=== PATIENT | female | born 1980 | race Caucasian/White ===

== ENCOUNTER 2018-09-22 17:34 | Emergency (ER) | payer SELFPAY ==
[2018-09-22 17:44] VITALS: BP 130/71; PULSE 67; RESP 16; TEMP 36; O2SAT 100
--- NOTE | 2018-09-22 17:48 | W.ED.GENAD ---
Discharge Plan Disposition Patient Disposition: HOME Condition: Good Discharge Details Chief Complaint: Sorethroat Clinical Impression: Acute sore throat, URI (upper respiratory infection) Primary Care Provider: Duran Mistry ED Provider: Clay Selby Home Meds and New Rx's Prescriptions: No Action sertraline 50 MG tablet 1.5 tab PO DAILY Qty: 135 RF: 1 norgestimate-ethinyl estradiol [Ortho Tri-Cyclen (28)] 1 EACH tablet 1 tab PO DAILY RF: 0 ibuprofen 800 MG tablet 800 mg PO QID PRN PRN (Reason: Pain) Qty: 30 RF: 0 clindamycin HCl 300 MG capsule 300 mg PO QID Qty: 28 RF: 0 Discharge Instructions Instructions: Upper Respiratory Infection (ED) Additional Instructions: Please take 800 mg of ibuprofen every 6 hours and 1000 mg of Tylenol every 6 hours for improvement of your pain. If you notice any worsening of your symptoms, or any new symptoms such as vomiting, diarrhea, fever, chills, shortness of breath, chest pain, numbness, weakness, or fainting , please return immediately to the emergency department for reevaluation. Please follow up with your primary care provider as soon as possible for reassessment and reevaluation. As always, it was a pleasure participating in your medical care today. Referrals: Duran Mistry [Primary Care Provider] - Medical Decision Making This is a very pleasant 38-year-old female who presents for evaluation of mild sore throat for the last week. No associated fevers, difficulty swallowing, or difficulty drinking. Symptoms are improved with hot tea. Physical exam demonstrates minimal cobblestoning the posterior oropharynx. No other significant abnormalities. No symptoms of severe fatigue, no abdominal tenderness suggestive of mono. No evidence of paratracheal abscess on exam, no evidence of retropharyngeal/peritonsillar abscess. Uvula is midline. No clinical evidence of meningitis. The patient clinically looks very well. I feel her signs and symptoms are consistent with a mild viral upper respiratory infection causing postnasal drip and subsequent sore throat. Recommend Anthony pot, Tylenol, Motrin, and continued fluids. She is out of the time index for Tamiflu, as her symptoms been present for a week. Her strep is negative for any evidence of strep throat. I have extensively reviewed the treatment plan and discharge instructions with the patient. I have addressed all patient concerns at this time. The patient was made aware of what symptoms to monitor for that would warrant a return to the emergency department. Discussed the plan with the patient, they demonstrate verbal understanding and agreement with our assessment and plan at this time. HPI General Date/Time Provider Initiated Documentation: 09/22/18 17:36. HPI Narrative: This is a 38-year-old female with no significant past medical history who presents today for evaluation of sore throat for the last week. Patient states that for the last week she has had mild sore throat, it is improved with hot tea. She has not been taking Tylenol or Motrin. She denies any difficulty swallowing, neck pain, neck stiffness, fever, chills, chest pain, shortness of breath, numbness, tingling or weakness. She denies any headache. She denies any complaint of vomiting, or diarrhea. She has no other complaints at this time. Past surgical history is positive for tonsillectomy and adenoidectomy. No other complaints modifying factors at this time. Related Data Home Medications Medication Instructions Recorded Confirmed sertraline 1.5 tab PO DAILY #135 tab-cap 04/17/14 ibuprofen 800 mg PO QID PRN PRN #30 tablet 09/09/15 07/23/17 norgestimate-ethinyl estradiol 1 tab PO DAILY 09/09/15 07/23/17 [Ortho Tri-Cyclen (28)] clindamycin HCl 300 mg PO QID #28 cap 07/23/17 Previous Rx's Medication Instructions Recorded ibuprofen 800 mg PO QID PRN PRN #30 tablet 09/09/15 clindamycin HCl 300 mg PO QID #28 cap 07/23/17 Allergies Allergy/AdvReac Type Severity Reaction Status Date / Time Penicillins AdvReac Mild increases Unverified 09/22/18 17:50 anxiety Review of Systems Review of Systems All systems reviewed & are unremarkable except as noted in HPI and below [facility] Surgical History section (05/07/11) Tonsillectomy and adenoidectomy Social History Smoking and Tabacco status: Never Exam Narrative Exam Narrative: 1.Const: Well-nourished, Well-developed, appearing stated age 2.Eyes: PERRL, no conjunctival injection, and symmetrical lids. 3.ENT: Atraumatic external nose and ears. Moist MM. Neck: Symmetric, trachea midline, No thyromegaly. No significant erythema in the posterior oropharynx. Minimal cobblestoning in the posterior oropharynx. Mild sinus congestion is noted with palpation and percussion of the frontal maxillary sinuses. No evidence of otitis media or externa. Patient demonstrates good movement of cervical neck. There is no nuchal rigidity, no nuchal tenderness. Patient is able to flex the neck without any difficulty or significant pain. Negative Kernig's and Brudzinski sign. 4.CVS: +S1/S2, No murmurs or gallops. Peripheral pulses 2+ and equal in all extremities. Brisk capillary refill in all extremities. 5.RESP: Unlabored respiratory effort. Clear to auscultation bilaterally. No wheezes rales or rhonchi 6.GI: Soft, Nontender/Nondistended, No hepatosplenomegaly. No guarding or rebound. 7.MSK: Normocephalic/Atraumatic, Extremities w/o deformity or ttp No cyanosis or clubbing, Normal movement of all extremities 8.Skin: Warm, Dry. No rashes or lesions. 9.Neuro: door opener II-XII grossly intact. Sensation grossly intact, no focal neurologic deficits. 10.Psych: (AAO) x3. Appropriate mood and affect
== END 2018-09-22 18:05 | disposition home or self-care (01) ==
LOC: ER 18:14
PROVIDERS: Emergency Provider Student in an Organized Health Care Education/Training Program; PCP Specialist/Technologist Athletic Trainer
DX: J06.9 Acute upper respiratory infection, unspecified (principal)
CPT/HCPCS: 87880; 99282; 87081

== ENCOUNTER 2020-11-10 14:46 | Emergency (ER) | payer MEDICAID, SELFPAY ==
--- NOTE | 2020-11-10 14:47 | ED.GENADUL_ITS ---
Discharge Plan Disposition Patient Disposition: HOME Condition: Good Discharge Details Clinical Impression: Abscess Primary Care Provider: Duran Mistry ED Provider: Eleonora Black Home Meds and New Rx's Prescriptions: New sulfamethoxazole-trimethoprim [Bactrim DS] 800-160 mg tablet 1 tab PO BID Qty: 10 RF: 0 Continued sertraline 50 MG tablet 1.5 tab PO DAILY Qty: 135 RF: 1 norgestimate-ethinyl estradiol [Ortho Tri-Cyclen (28)] 1 EACH tablet 1 tab PO DAILY RF: 0 ibuprofen 800 MG tablet 800 mg PO QID PRN PRN (Reason: Pain) Qty: 30 RF: 0 Discharge Instructions Instructions: Abscess (ED) Additional Instructions: Your red area is most consistent with abscess that has drained spontaneously. At this time, continue with the treatment you have been doing at home- keeping area clean, warm compresses. If the redness spreads, has increased pain, please and the antibiotic begin the antibiotics. If you start the antibiotic, please take the entire course. If you begin to developing fever/chills, the redness has significant change or you develop other new/worsening symptoms please seek care urgently once again. Otherwise, please follow-up with primary care in 1 week for reevaluation Referrals: Duran Mistry [Primary Care Provider] - Discharge Data Discharge Date/Time-TO BE ENTERED AT DEPARTURE: 11/10/20 15:31 Medical Decision Making Patient is a pleasant 40-year-old female presenting today with chief complaint of abdominal lesion. She reports that she first noticed this a few days ago. States that she has had boils in the past. Has not had lesion in this area previously. She reports that last night the lesion spontaneously opened and drained purulent discharge. Denies any fevers or chills. No other lesions at this time. On exam, patient appears nontoxic. She does have a small focal area on her abdomen as described. She has a small open area consistent with where this has been draining from previously. I not see any evidence to suggest residual retained contents. There is no area of fluctuance, swelling or induration. I did explore the area with an ultrasound and no fluid collections are noted. Sma ll area of erythema surrounding this. However, it is not hot. I do not see any evidence of significant cellulitis. Patient I discussed treatment options. Pelvic patient had an abscess which spontaneously drained. I do not see any further need for intervention at this time. We did discuss plus/minus of antibiotics. Will perform watch and wait approach. Will prescribe antibiotics in the event that symptoms worsen. However, at this time I did advise that she hold off. She will follow-up with primary care for reevaluation. Return precautions were discussed. All her questions and concerns were addressed and she is in agreement this plan. HPI General Mode of arrival: ambulatory . Date/Time Provider Initiated Documentation: 11/10/20 14:47 . Limitations to Documentation: no limitations . Information obtained by: patient and RN notes reviewed . History of Present Illness 40 year old F presents to the emergency department with the chief complaint of abdominal lesion, described as moderate, Quality is described as burning, and is localized to the abdomen. Patient reports no radiation. Patient started experiencing this day(s) and it has been constant (improving). other things that improve symptom(s), (opened and drained spontaneously) No exacerbating factors reported . Patient notes no other symptoms.; denies fever/chills. Patient did receive the following treatments prior to arrival, none Related Data Home Medications Medication Instructions Recorded Confirmed sertraline 1.5 tab PO DAILY #135 tab-cap 04/17/14 11/10/20 ibuprofen 800 mg PO QID PRN PRN #30 tablet 09/09/15 11/10/20 norgestimate-ethinyl estradiol 1 tab PO DAILY 09/09/15 11/10/20 [Ortho Tri-Cyclen (28)] sulfamethoxazole-trimethoprim 1 tab PO BID #10 tab 11/10/20 [Bactrim DS] Previous Rx's Medication Instructions Recorded ibuprofen 800 mg PO QID PRN PRN #30 tablet 09/09/15 sulfamethoxazole-trimethoprim 1 tab PO BID #10 tab 11/10/20 [Bactrim DS] Allergies Allergy/AdvReac Type Severity Reaction Status Date / Time Penicillins AdvReac Mild increases Unverified 09/22/18 17:50 anxiety General MULU: 4 Review of Systems Constitutional Constitutional: Reports as per HPI, Denies chills and Denies fever(s) Gastrointestinal Gastrointestinal: Reports as per HPI, Denies abdominal pain (pain is limited to skin at site of lesion), Denies change in bowel habits, Denies nausea and Denies vomiting Musculoskeletal Musculoskeletal: Reports as per HPI Integumentary/Breasts Skin/Breast: Reports as per HPI Neurologic Neurologic: Reports as per HPI, Denies sensory deficit and Denies paresthesias [facility] Surgical History section (05/07/11) Tonsillectomy and adenoidectomy Social History Smoking/Tobacco Use Status: Never Smoking risk assessment performed?: Yes Alcohol Intake: never Drug use: Never Substance use type: does not use Do you feel safe at home: Yes Do you feel safe in your relationship?: Yes Exam Const General: cooperative, healthy appearing, comfortable, no acute distress and well developed Nutritional Appearance: average body habitus and well nourished Orientation: alert and awake Resp Effort & Inspection: normal respiratory effort, able to speak in complete sentences and no respiratory distress Cardio Rate: regular rate Rhythm: regular rhythm GI Inspection: normal to inspection (lesion as drawn below) and non-distended Palpation: soft, no hepatosplenomegaly, no guarding, no masses, not rigid, nontender and No ascites Percussion: normal to percussion Auscultation: normal bowel sounds Abdomen image: 1. Patient has a circular 1 cm purple lesion with a central area of the opening. No discharge at this time. No area of fluctuance, induration or swelling. Minimal area of erythema surrounding this. Not warm to the touch. Nontender. Skin Lesions: lesion noted (As above) Neuro General: patient alert and patient awake Cognition: normal cognition Speech: speech normal Gait: normal gait Sensory Exam: no sensory deficits noted Psych Appearance: grossly normal and well kempt Mental Status: mental status grossly normal Speech and Movement: speech and movement normal
[2020-11-10 14:53] VITALS: BP 137/87; PULSE 96; RESP 16; TEMP 36.9; O2SAT 98
== END 2020-11-10 15:31 | disposition home or self-care (01) ==
PROVIDERS: Emergency Provider Physician Assistant; PCP Specialist/Technologist Athletic Trainer
DX: L02.211 Cutaneous abscess of abdominal wall (principal)
CPT/HCPCS: 99283

== ENCOUNTER 2023-03-04 13:54 | Outpatient (REF) | payer MEDICAID, SELFPAY ==
--- NOTE | 2023-03-04 12:00 | PAPFT_PTH ---
PATIENT: Rosi Gardiner LOC: 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
== END 2023-03-04 13:55 | disposition home or self-care (01) ==
LOC: NCHCN 13:54
PROVIDERS: PCP Specialist/Technologist Athletic Trainer; Visit Provider Family Medicine
DX: Z12.4 Encounter for screening for malignant neoplasm of cervix (principal); Z11.51 Encounter for screening for human papillomavirus (HPV); R87.810 Cervical high risk human papillomavirus (HPV) DNA test positive
CPT/HCPCS: 88142; 87624

== ENCOUNTER 2024-05-19 12:16 | Outpatient (CLI) | payer MEDICARE, MEDICAID, SELFPAY ==
--- NOTE | 2024-05-19 14:37 | DI.RAD_ITS ---
Exam(s) XR KNEE LT 3V AP,LAT,FREDERICK EXAM: XR KNEE LT 3V AP,LAT,FREDERICK CLINICAL HISTORY: PAIN LEFT KNEE M25.562. TECHNIQUE: 2D digital imaging was performed. COMPARISON: No exams were available for comparison FINDINGS: 3 views No evidence of fracture or joint effusion. No degenerative changes. No osteochondral defects. Bone density normal. No osseous lesions. IMPRESSION: No significant osseous findings in the left knee. DATA REPOSITORY: RADIATION DOSE DELIVERED:
== END 2024-05-19 12:36 ==
PROVIDERS: PCP Specialist/Technologist Athletic Trainer; Visit Provider Physician Assistant Medical
DX: M25.562 Pain in left knee (principal)
CPT/HCPCS: 73562

== ENCOUNTER 2024-05-19 18:48 | Outpatient (REF) | payer MEDICARE, MEDICAID, SELFPAY ==
[2024-05-22 10:37] LABS: Lyme Ab w Rflx to Lyme Confirm Negative (Negative)
== END 2024-05-19 18:49 | disposition home or self-care (01) ==
LOC: LBN 18:48
PROVIDERS: PCP Specialist/Technologist Athletic Trainer; Visit Provider Physician Assistant Medical
DX: M25.562 Pain in left knee (principal)
CPT/HCPCS: 86618